=== PATIENT | female | born 1995 | race Two or more races ===

== ENCOUNTER 2018-02-24 11:10 | Outpatient (CLI) | payer OTHER | END 2018-02-24 12:35 | disposition home or self-care (01) | LOC: SONOGRAMA 11:10 | DX: D21.0 Benign neoplasm of connective and other soft tissue of head, face and neck (principal) ==

== ENCOUNTER 2019-11-13 09:47 | Outpatient (CLI) | payer OTHER | END 2019-11-13 11:49 | disposition home or self-care (01) | LOC: OBS/DEL 09:47 | DX: O26.893 Other specified pregnancy related conditions, third trimester (principal); R06.09 Other forms of dyspnea ==

== ENCOUNTER 2019-12-20 12:22 | Inpatient (IN) | payer OTHER ==
[~2019-12-20] VITALS: Ht 149.9 cm; Wt 3.2 kg
[2020-01-16] MEDS ORDERED: PRENATAL TABLE1 EAC1 PO (07:17)
[2020-01-16] MEDS ORDERED: IRON 100 PLUS1 EACH PO (07:18)
== END 2020-01-19 16:56 | disposition home or self-care (01) | DRG 788 ==
LOC: OB/GYN 01-16 06:29 → LDR 01-16 06:29 → OB/GYN 01-16 20:07
PROVIDERS: Obstetrics & Gynecology; ADMIT Obstetrics & Gynecology; ATTEND Obstetrics & Gynecology
PROC: 3E033VJ Introduction of Other Hormone into Peripheral Vein, Percutaneous Approach (ICD-10-PCS; 2020-01-16)
PROC: 4A1HXCZ Monitoring of Products of Conception, Cardiac Rate, External Approach (ICD-10-PCS; 2020-01-16)
PROC: 10D00Z1 Extraction of Products of Conception, Low, Open Approach (ICD-10-PCS; principal; 2020-01-16 17:00)
DX: O61.0 Failed medical induction of labor (principal); O64.8XX0 Obstructed labor due to other malposition and malpresentation, not applicable or unspecified; Z20.828 Contact with and (suspected) exposure to other viral communicable diseases; Z3A.39 39 weeks gestation of pregnancy; Z37.0 Single live birth

== ENCOUNTER 2019-12-25 11:09 | Inpatient (IN) | payer OTHER ==
[~2019-12-25] VITALS: Ht 149.9 cm; Wt 79.8 kg
== END 2019-12-26 09:24 | disposition home or self-care (01) | DRG 833 ==
LOC: LDR 11:09
PROVIDERS: ADMIT Obstetrics & Gynecology Maternal & Fetal Medicine; ATTEND Obstetrics & Gynecology Maternal & Fetal Medicine
PROC: 4A1HXFZ Monitoring of Products of Conception, Cardiac Rhythm, External Approach (ICD-10-PCS; principal; 2019-12-25)
DX: O26.893 Other specified pregnancy related conditions, third trimester (principal); Z3A.36 36 weeks gestation of pregnancy; R10.2 Pelvic and perineal pain

== ENCOUNTER 2021-11-05 13:02 | Outpatient (CLI) | payer OTHER ==
[~2021-11-05 13:02] MED LIST: IRON 100 PLUS1 EACH PO; PRENATAL TABLE1 EAC1 PO
== END 2021-11-05 13:15 | disposition home or self-care (01) ==
LOC: RAD 13:02
PROVIDERS: ATTEND Internal Medicine
DX: L72.3 Sebaceous cyst (principal); L72.12 Trichodermal cyst

== ENCOUNTER 2023-09-11 01:47 | Emergency (ER) | payer OTHER ==
[~2023-09-11] VITALS: Ht 149.9 cm; Wt 72.6 kg
[2023-09-11] MEDS ORDERED: METOCLOPRAMIDE HCL 5 MG/ML VIAL IM STA (04:19)
[2023-09-11] MEDS ORDERED: KETOROLAC TROMETHAMINE 30 MG VIAL IV STA (04:20)
[2023-09-11] MEDS ORDERED: hydrOXYzine PAMOATE 50 MG CAPSULE PO STA (04:20)
== END 2023-09-11 06:20 | disposition home or self-care (01) ==
LOC: ER 01:48
DX: G43.829 Menstrual migraine, not intractable, without status migrainosus (principal)

== ENCOUNTER 2024-05-31 09:45 | Inpatient (IN) | payer OTHER ==
[~2024-05-31] VITALS: Ht 149.9 cm; Wt 3.2 kg
[2024-05-31 11:55] LABS: HEMATOCRIT 33.1 % (36.0-45.00); HEMOGLOBIN 10.7 g/dL (12.0-15.00); MEAN CELL VOLUME 78.8 fL (80.00-100.00); MEAN CORPUSCULAR HEMOGLOBIN 25.6 pg (27.00-32.0); MEAN CORPUSCULAR HGB CONC 32.5 g/dl (32.0-36.0); PLATELET COUNT 224 K/uL (150-450)
[2024-05-31 11:57] LABS: PH,URINE 5.5 (5.0-8.0); URINE APPEARANCE Cloudy; URINE BILIRRUBIN Negative (NEGATIVE); URINE BLOOD Negative; URINE COLOR Dark Yellow; URINE GLUCOSE Negative (NEGATIVE); URINE KETONE Negative (NEGATIVE); URINE LEUKOCYTE Large; URINE NITRATE Negative; URINE PROTEIN Trace (NEGATIVE)
[2024-05-31 11:58] LABS: URINE BACTERIA 1151.7 uL (0.0-1933); URINE EPITHELIAL CELLS 123.6 uL (0.0-38.8); URINE WBC 266.9 uL (0.0-23.2)
[2024-05-31 12:24] LABS: URINE CAST 0.88 uL (0.0-1.40); URINE RBC 1.7 uL (0.0-20.8)
[2024-05-31 12:39] LABS: ALBUMIN 2.9 gm/dL (3.4-5.0); BILIRUBIN TOTAL 0.43 mg/dL (0.3-1.2); CALCIUM 9.2 mg/dL (8.5-10.1); CREATININE SERUM 0.48 mg/dL (0.55-1.02); GFR 156.33; GLOBULINA 4.1 G/DL (2.4-3.5); POTASSIUM 4.22 mEq/L (3.5-5.1)
[2024-05-31 14:10] LABS: INR 0.98; PARTIAL THROMBOPLASTIN TIME 23.8 SECONDS (22.0-34.0); PROTHROMBIN TIME 10.7 SECONDS (9.0-11.5)
[2024-06-08] MEDS ORDERED: PRENATA CHEWAB1 EACH PO (07:14)
[2024-06-08] MEDS ORDERED: IRON325 MG PO (07:15)
[2024-06-08 07:16] VITALS: BP 113/69
[2024-06-08] MEDS ORDERED: CITRIC ACID/SODIUM CITRATE 30 ML BLIST.PACK PO ONE (09:00)
[2024-06-08] MEDS ORDERED: CEFAZOLIN SODIUM 1,000 MG VIAL IV ONE (09:00)
[2024-06-08] MEDS ORDERED: ERYTHROMYCIN BASE OPHT 1GM EACH TUBE OP ONE (09:00)
[2024-06-08] MEDS ORDERED: OXYTOCIN 10 UNITS/ML VIAL IV ONE (09:00)
[2024-06-08] MEDS ORDERED: MORPHINE SULFATE 4 MG/ML VIAL IV ONE ×2 (11:10→11:40)
[2024-06-08] MEDS ORDERED: RINGERS SOLUTION,LACTATED 1,000 ML IV SCH (11:30)
[2024-06-08] MEDS ORDERED: MORPHINE SULFATE 4 MG/ML CARTRIDGE IV PRN (11:30)
[2024-06-08] MEDS ORDERED: OXYTOCIN 1,000 ML IV ONE (11:45)
[2024-06-08] MEDS ORDERED: KETOROLAC TROMETHAMINE 30 MG VIAL IV SCH (12:00)
[2024-06-08] MEDS ORDERED: ONDANSETRON HCL 2 MG/ML VIAL IV SCH (12:00)
[2024-06-08] MEDS ORDERED: ACETAMINOPHEN 500 MG GEL..CAP PO SCH (12:00)
[2024-06-08 12:07] VITALS: BP 129/82
[2024-06-08] MEDS ORDERED: GABAPENTIN 300 MG CAPSULE PO SCH (17:00)
[2024-06-08] MEDS ORDERED: SIMETHICONE 125 MG CAPSULE PO SCH (17:00)
[2024-06-08 18:26] VITALS: BP 116/74
[2024-06-09 00:40] VITALS: BP 110/71
[2024-06-09 06:43] LABS: HEMOGLOBIN 9.2 g/dL (12.0-15.00); MEAN CELL VOLUME 79.4 fL (80.00-100.00); MEAN CORPUSCULAR HGB CONC 32.8 g/dl (32.0-36.0); PLATELET COUNT 180 K/uL (150-450); RED BLOOD COUNT 3.52 M/uL (4.00-6.00); RED CELL DISTRIBUTION WIDTH 16.1 % (11.5-14.5)
[2024-06-09] MEDS ORDERED: KETOROLAC TROMETHAMINE 10 MG TABLET PO SCH (08:00)
[2024-06-09] MEDS ORDERED: OxyCODONE HCL 5 MG TABLET (ROXICODONE) PO PRN (08:00)
[2024-06-09] MEDS ORDERED: DOCUSATE SODIUM 100MG CAP PO SCH (09:00)
[2024-06-09] MEDS ORDERED: IRON FUM,PS/FOLIC/BCOMP,C NO.9 1 CAP CAPSULE PO SCH (09:00)
[2024-06-09 11:02] VITALS: BP 128/83
[2024-06-09 16:06] VITALS: BP 119/81
[2024-06-10 01:11] VITALS: BP 121/78
[2024-06-10 08:00] VITALS: BP 124/73
== END 2024-06-10 13:46 | disposition home or self-care (01) | DRG 788 ==
LOC: O/R 06-08 05:30 → OB/GYN 06-08 05:30 → LDR 06-08 07:00 → OB/GYN 06-08 13:01
PROVIDERS: Obstetrics & Gynecology; ADMIT Obstetrics & Gynecology Gynecology; ATTEND Obstetrics & Gynecology Gynecology
PROC: 4A1HXCZ Monitoring of Products of Conception, Cardiac Rate, External Approach (ICD-10-PCS; 2024-06-08)
PROC: 10D00Z1 Extraction of Products of Conception, Low, Open Approach (ICD-10-PCS; principal; 2024-06-08 07:00)
DX: O34.211 Maternal care for low transverse scar from previous cesarean delivery (principal); Z3A.39 39 weeks gestation of pregnancy; Z37.0 Single live birth; Z20.822 Contact with and (suspected) exposure to COVID-19

== ENCOUNTER 2024-06-11 05:19 | Emergency (ER) | payer OTHER ==
[~2024-06-11] VITALS: Ht 149.9 cm; Wt 89.8 kg
[~2024-06-11 05:19] MED LIST changes: +IRON325 MG PO; +PRENATA CHEWAB1 EACH PO
[2024-06-11] MEDS ORDERED: ACETAMINOPHEN WITH CODEINE 1 UDTAB TABLET PO ONE (09:00)
== END 2024-06-11 10:21 | disposition home or self-care (01) ==
LOC: ER 05:21
DX: G89.18 Other acute postprocedural pain (principal)